=== PATIENT | male | born 1955 | race Two or more races ===

== ENCOUNTER 2025-01-14 06:14 | Inpatient (IN) | payer BC, MEDICARE ==
[2025-01-10 09:53] LABS: Urine Protein, UAD Negative (Negative)
[2025-01-10 09:54] LABS: Alanine Aminotransferase 27 U/L (7-40); Albumin 4.6 g/dL (3.2-4.8); Alkaline Phosphatase 93 U/L (46-116); Anion Gap 8 (5-15); BUN/Creatinine Ratio 8.7 (10.0-20.0); Calcium 10.1 mg/dL (8.7-10.4); Carbon Dioxide 30 mmol/L (20-31); Chloride 100 mmol/L (98-107); Potassium 4.6 mmol/L (3.5-5.1); Sodium 138 mmol/L (136-145); Total Protein 7.6 g/dL (5.7-8.2)
[2025-01-10 09:55] LABS: Hematocrit 44.5 % (41.0-53.0); Hemoglobin 15.2 g/dL (13.5-17.5); Mean Corpuscular Hemoglobin 33.2 pg (28.0-32.0); Mean Corpuscular Volume 97.1 fL (80.0-100.0); Nucleated Red Blood Cells % 0.1 %
[2025-01-10 09:57] LABS: Bilirubin, Total 2.1 mg/dL (0.2-1.0); Blood Urea Nitrogen 8 mg/dL (9-23); Glucose 149 mg/dL (74-106)
[2025-01-10 10:04] LABS: INR 1.0 (0.9-1.15); Partial Thromboplastin Time 26.5 SEC (24.5-34.5); Prothrombin Time 10.6 sec (9.3-11.8)
[2025-01-14] VITALS (19 sets, daily range): BP systolic 94–147; BP diastolic 53–95; PULSE 59–109; RESP 12–19; TEMP 96.9–98.4; O2SAT 83–99
[~2025-01-14] VITALS: Ht 182.9 cm; Wt 108.3 kg
[~2025-01-14 06:14] MED LIST: ASPI81CH59 PO; ATOR80TA PO; LISI20TA56 PO; METF-371 PO; NITR0.4S29 SL; TICA90TA PO
[2025-01-14] MEDS ORDERED: MIDAZOLAM HCL 2MG/2ML 2ml VIAL (1mg/ml) ONE (06:59)
[2025-01-14] MEDS ORDERED: fentaNYL CITRATE 100 MCG/2 ML VL ONE (06:59)
[2025-01-14] MEDS ORDERED: KETAMINE 50mg/ML 1ml syringe ONE (06:59)
[2025-01-14] MEDS ORDERED: PROPOFOL 10 MG/ML 20 ML IV ONE (07:00)
[2025-01-14] MEDS ORDERED: GLYCOPYRROLATE 0.2 MG/ML 1ML VIAL ONE (07:00)
[2025-01-14] MEDS ORDERED: ONDANSETRON HCL 4 MG/2 ML VIAL ONE (07:00)
[2025-01-14] MEDS ORDERED: MORPHINE SULF PF 5 MG/10 ML VIAL ONE (07:00)
[2025-01-14] MEDS ORDERED: PHENYLEPHRINE HCL 10 MG/ML VL ONE (07:00)
[2025-01-14] MEDS ORDERED: BUPIVACAINE/DEXTROSE MPF 0.75% 2 ML AMP IT ONE (07:00)
[2025-01-14] MEDS ORDERED: KETOROLAC TROMETH 30 MG/ML 1ML VIAL ONE (07:00)
[2025-01-14] MEDS: PREGABALIN CAPSULE 75 MG CAP PO ONE (07:19)
[2025-01-14] MEDS: CELECOXIB 100 MG CAP PO ONE (07:19)
[2025-01-14] MEDS: ACETAMINOPHEN IV 1000 MG/100ML (10MG/ML) IV ONE (07:19)
[2025-01-14] MEDS ORDERED: HYDROmorphone HCL 2 MG/ML VL/or syr IV PRN ×2 (07:30→11:45)
[2025-01-14] MEDS ORDERED: NITROGLYCERIN 0.4 MG SL TAB SL SCH (07:30)
[2025-01-14] MEDS ORDERED: NITROGLYCERIN 0.4 MG SL TAB SL PRN (07:30)
[2025-01-14] MEDS ORDERED: ONDANSETRON HCL 4 MG/2 ML VIAL IV PRN ×2 (07:30→10:00)
[2025-01-14] MEDS ORDERED: MORPHINE SULFATE INJ 2 MG/ml SYRG IV PRN (07:30)
[2025-01-14] MEDS ORDERED: DEXTROSE (50%) 50ML SYRG IV PRN (07:45)
[2025-01-14] MEDS: ceFAZolin 2 GM/D5W50ml 50 ML IV ONE (07:56)
[2025-01-14] MEDS: CEFEPIME 1GM/50ML 50 ML IV ONE (07:56)
[2025-01-14] MEDS: TRANEXAMIC ACID 20 ML ONE (07:57)
[2025-01-14] MEDS: VANCOMYCIN HCL 1000 MG VL ONE (08:26)
--- NOTE | 2025-01-14 09:34 | DVHOP2 ---
Discharge Orders Discharge Orders DISCHARGE WHEN CRITERIA MET DISCHARGE WHEN CRITERIA MET. Operative Rep- Outpatient Operative Report PRE-OP DIAGNOSIS: Left knee osteoarthritis Left knee flexion contracture PRE-OP PAIN LEVEL (0-10): 8 POST-OP DIAGNOSIS: Same [place] protocol followed: Yes ESTIMATED BLOOD LOSS: 25 cc PROCEDURE: Left total knee arthroplasty Computer navigation left total knee arthroplasty Application of negative pressure wound VAC SURGEON/HELICOPTER PILOT: Malena España MD. Darrius HARRELL ANESTHESIA: Spinal ANESTHESIOLOGIST: Von INFORMED CONSENT: Informed Consent: Discussed all inherent risks, complications, and alternatives treatments with the patient. Patient has agreed to proceed with the procedure. I have reviewed all pre-operative assessments including Labs, EKGs, and radiographic images that has been performed. Patient is an appropriate candidate for the outpatient surgical center procedure. The patient is a 69-year-old male who has ongoing pain of the left knee has pain with any kind of range of motion and function of the left knee. The patient has a flexion contracture as well. The patient was educated on the risks and benefits of surgical and nonsurgical treatment of the left lower extremity understands the risks associated with the total knee arthroplasty based on these parameters the patient is educated on the risks and benefits of surgical and nonsurgical treatment The patient is seen in the preoperative holding of the left lower extremity was marked the patient was brought to operative suite general anesthesia was then induced and also to hospital protocol the left lower extremity was prepped and draped in the standard fashion Ancef was given for infection prophylaxis TXA was given for bleeding prophylaxis once it was then done incision was made through skin subcu tissue down to the VMO quad junction of the medial parapatellar arthrotomy was then created once I was then created in the appropriate manner the patient has significant osteophytes noted in the gutter a medial parapatellar arthrotomy was then created of the fat pad was then carefully removed of the anterior aspect of the patellar tendon of the anterior horn of the medial and lateral meniscus were then carefully transected once I was then completed in the appropriate manner attention and through into computer navigation with a 2 degree slope based on the fact that we are doing an MC poly and re-doing a sacrificing the PCL knee based on the MC poly I closed down the flexion gap through the slope once I was then done using computer navigation with flexion extension internal external rotation a 2 degree slope was then measured and then neutral kinematic mechanical access was then appropriately performed the proximal tibia cut was then completed with 2 mm off the medial side. Once it was then done the distal femoral cut was then completed with a 3 degree flexion slope and a neutral kit hematocrit mechanical axis once I was then done on the sizing block was then used a size 8 femoral component was then done the 541 cutting block was then done the patient had significant posterior osteophytes noted of the medial and lateral meniscus were carefully removed along the anterior horn of the medial and lateral meniscus along with the ACL PCL once I was then done a 9 mm spacer block was then balanced in flexion and extension once it was then done. A size 7 tibial base plate was punched and kicked along the medial 1/3 tibial tubercle were then MC tendon 9 mm MC poly followed by a size 8 femoral component was punched and killed in the patellar neurectomy and all patellar osteophytes were carefully removed the patella had appropriate tracking once I was then done the patient had full range of motion of the knee. The patient was educated on the risks and benefits of surgical and nonsurgical treatment. The patient understood the risks and benefits of surgical and nonsurgical treatment of the knee was irrigated copiously with saline a size 7 tibial base plate was placed into position a 9 MC poly followed by an 8 femoral component once it was then done in the appropriate manner the knee was irrigated customized saline and then 5. Ethibond was used to close the arthrotomy followed by 0 Vicryl followed by Stratafix followed by 0 Vicryl followed by 2-0 Monocryl followed by joel. The patient will be weight- bearing as tolerated on the left lower extremity PT OT out of bed daily applicat ion of negative pressure wound VAC. the posterior osteophytes were carefully removed with a large Sibley and a release of the posterior capsule with the help with the flexion contracture to get full extension that was noted intraoperatively. KEELEY ESPAÑA MD Jan 14, 2025 09:34
[2025-01-14] MEDS: ACCU-CHEK COMFORT CURVE STRIP VI ONE (10:00)
[2025-01-14] MEDS ORDERED: NALOXONE HCL 0.4 MG/ML VIAL IV PRN (10:00)
[2025-01-14] MEDS ORDERED: diphenhydrAMINE HCL 50 MG/1 ML VL IV PRN (10:00)
--- NOTE | 2025-01-14 11:09 | DVH ---
CLINICAL INDICATION: S/P SURGERY TECHNIQUE: 3 radiographic views of the left knee were obtained. Comparison: None FINDINGS/IMPRESSION: Postop changes of the left knee arthroplasty. Distal femoral and proximal tibial prostheses in satisfactory alignment. Gas collection in the soft tissues of the mid and distal lateral femur most likely postoperative in etiology. Skin closure joel noted anteriorly.
[2025-01-14] MEDS: LACTATED RINGER'S 1,000 ML IV SCH (11:20)
[2025-01-14] MEDS: ACETAMINOPHEN IV 100 ML IV ONE (11:20)
[2025-01-14] MEDS: ceFAZolin 1GM/50ML 50 ML IV SCH (11:21)
[2025-01-14] MEDS: ACCU-CHEK COMFORT CURVE STRIP VI SCH (11:22)
[2025-01-14] MEDS: LISINOPRIL 20 MG TAB PO SCH (11:22)
--- NOTE | 2025-01-14 11:36 | DVHINCON2 ---
Date Seen: Jan 14, [address] SHERMAN Allergies: Coded Allergies: NO KNOWN ALLERGIES (Unverified , 01/14/25) Home Meds Reported Medications Nitroglycerin (NTROSTAT SUBLINGUAL) 0.4 Mg Sl, 0.4 MG SL PRN, TAB *MAY REPEAT EVERY 5 MINUTES X 3 TOTAL IF NO RELIEF, INITIATE ANALGESIC THERAPY. NOTIFY PHYSICIAN *Do not crush. 01/11/25 Metformin Hydrochloride (Metformin Hcl) 850 Mg Tab, 850 MG PO BID, TAB 01/11/25 Lisinopril (Lisinopril) 20 Mg Tab, 10 MG PO DAILY, TAB 01/11/25 Atorvastatin Calcium (Lipitor) 80 Mg Tab, 80 MG PO DAILY, TAB 01/11/25 Aspirin (Aspirin Low Dose) 81 Mg Chw, 81 MG PO, TAB.CHEW 01/11/25 Ticagrelor Base (BRILINTA) 90 Mg Tab, 90 MG PO DAILY, TAB 01/11/25 Current Medications Current Medications Medications (Trade) Dose Ordered Sig/Hilda Route PRN Reason Start Time Stop Time Status Last Admin Lisinopril (Zestril Tablet) 10 mg DAILY PO 01/14/25 10:00 Nitroglycerin (Ntrostat Sublingual) 0.4 mg PRN SL 01/14/25 07:30 UNV Ticagrelor (Brilinta) 90 mg DAILY PO 01/14/25 10:00 Atorvastatin Calcium (Lipitor) 80 mg HS PO 01/14/25 22:00 Future Hold Lactated Ringer's 1,000 ml @ 100 mls/hr Q10H IV 01/14/25 07:30 Sodium Chloride (Saline Lock Ns) 10 ml Q8HR IV 01/14/25 14:00 Cefazolin Sodium 50 ml @ 50 mls/hr Q6H IV 01/14/25 07:30 01/14/25 20:29 Acetaminophen/ Hydrocodone Bitart (Moody 5/325MG Tab) 1 tab Q4HP PRN PO MODERATE PAIN (4-6 PAIN SCALE) 01/14/25 07:30 Hydromorphone HCl (Dilaudid Injection) 1 mg Q2HP PRN IV SEVERE PAIN (7-10 PAIN SCALE) 01/14/25 07:30 Oxycodone HCl (OxyCONTIN ER Tablet) 10 mg Q12HR PO 01/14/25 10:00 Ondansetron HCl (Zofran) 4 mg Q6HP PRN IV NAUSEA / VOMITING 01/14/25 07:30 Docusate Sodium (Colace Capsule) 100 mg Q12HR PO 01/14/25 10:00 Nitroglycerin (Ntrostat Sublingual) 0.4 mg Q5MINP PRN SL FOR CHEST PAIN 01/14/25 07:30 Morphine Sulfate 2 mg Q30M PRN IV FOR CHEST PAIN 01/14/25 07:30 Diagnostic Test (Pha) (Accu-Chek Comfort Curve T) 1 strip ACHS 01/14/25 11:30 01/14/25 11:22 Insulin Human Regular (InsuLIN R) HS SC 01/14/25 22:00 Insulin Human Regular (InsuLIN R) AC SC 01/14/25 11:30 Dextrose 50 ml UD PRN IV Blood Sugar LESS THAN 60 01/14/25 07:45 Ondansetron HCl (Zofran) 4 mg ONCE PRN IV NAUSEA / VOMITING 01/14/25 10:00 01/14/25 10:01 UNV Diphenhydramine HCl (Benadryl Injection) 25 mg Q4HP PRN IV FOR ITCHING 01/14/25 10:00 Ondansetron HCl (Zofran) 4 mg Q4HP PRN IV NAUSEA / VOMITING 01/14/25 10:00 UNV Naloxone HCl (Narcan) 0.2 mg Q5M PRN IV For respirations < than 10/min 01/14/25 10:00 01/14/25 10:55 DC Dexamethasone Sodium Phosphate (Decadron Injection) 10 mg RECORDIST PRN IV FOR ITCHING 01/14/25 10:00 01/14/25 10:55 DC Ketorolac Tromethamine (Toradol Injection) 30 mg Q6HP PRN IV MODERATE PAIN (4-6 PAIN SCALE) 01/14/25 10:00 01/19/25 09:59 UNV Vital Signs Vital Signs Date Time Temp Pulse Resp B/P (MAP) Pulse Ox O2 Delivery O2 Flow Rate FiO2 01/14/25 11:13 69 15 95 Room Air* 0 21 01/14/25 10:37 128/66 (86) 01/14/25 09:52 97.7 97.7 Labs/Diagnostic Data Labs Test 01/14/25 10:04 01/10/25 09:10 Range/Units POC Glucose 140 H 70-106 mg/dl White Blood Count 5.7 4.4-10.8 10^3/uL Red Blood Count 4.58 4.5-5.90 10^6/uL Hemoglobin 15.2 13.5-17.5 g/dL Hematocrit 44.5 41.0-53.0 % Mean Corpuscular Volume 97.1 80.0-100.0 fL Mean Corpuscular Hemoglobin 33.2 H 28.0-32.0 pg Mean Corpuscular Hemoglobin Concent 34.2 32.0-36.0 g/dL Red Cell Distribution Width 14.0 11.8-14.3 % Platelet Count 247 140-450 10^3/uL Mean Platelet Volume 7.5 6.9-10.8 fL Neutrophils (%) (Auto) 39.7 37.0-80.0 % Lymphocytes (%) (Auto) 42.0 10.0-50.0 % Monocytes (%) (Auto) 10.0 0.0-12.0 % Eosinophils (%) (Auto) 7.2 H 0.0-7.0 % Basophils (%) (Auto) 1.1 0.0-2.0 % Neutrophils # (Auto) 2.3 1.6-8.6 10 ^3/uL Lymphocytes # (Auto) 2.4 0.4-5.4 10 ^3/uL Monocytes # (Auto) 0.6 0-1.3 10 ^3/uL Eosinophils # (Auto) 0.4 0-0.8 10 ^3/uL Basophils # (Auto) 0.1 0-0.2 10 ^3/uL Nucleated Red Blood Cells 0.1 % Prothrombin Time 10.6 9.3-11.8 sec Prothrombin Time INR 1.00 0.9-1.15 Activated Partial Thromboplast Time 26.5 24.5-34.5 SEC Urine Color Yellow Yellow Urine Clarity Clear Clear Urine pH 7.5 5.0-9.0 Urine Specific [place] 1.017 1.001-1.035 Urine Protein Negative Negative Urine Ketones Negative Negative Urine Blood Negative Negative /uL Urine Nitrite Negative Negative Urine Bilirubin Negative Negative Urine Urobilinogen 2 H Negative mg/dL Urine Leukocyte Esterase Negative Negative /uL Urine RBC <1 0 - 3 /hpf Urine Microscopic WBC < 1 0-3 /HPF Urine Squamous Epithelial Cells None seen <5 /hpf Urine Bacteria None seen None Seen /hpf Urine Glucose Trace Normal mg/dL Sodium Level 138 136-145 mmol/L Potassium Level 4.6 3.5-5.1 mmol/L Chloride Level 100 98-107 mmol/L Carbon Dioxide Level 30 20-31 mmol/L Anion Gap 8 5-15 Blood Urea Nitrogen 8 L 9-23 mg/dL Creatinine 0.92 0.700-1.30 mg/dL Glomerular Filtration Rate Calc 89 >90 mL/min BUN/Creatinine Ratio 8.7 L 10.0-20.0 Serum Glucose 149 H 74-106 mg/dL Calcium Level 10.1 8.7-10.4 mg/dL Total Bilirubin 2.1 H 0.2-1.0 mg/dL Aspartate Amino Transferase (AST) 24 13-40 U/L Alanine Aminotransferase (ALT) 27 7-40 U/L Alkaline Phosphatase 93 46-116 U/L Total Protein 7.6 5.7-8.2 g/dL Albumin 4.6 3.2-4.8 g/dL Assessment SEE DICTATED NOTE Plan discussed with: Patient Date of Service: Jan 14, 2025 Billing Provider: ALONA PARKER MD Common Visit Codes: [id number] INP/OBS CARE (HIGH) Secondary Visit Codes: [id number] CARE PLAN 30 MINUTES ALONA PARKER MD Jan 14, 2025 11:36
[2025-01-14] MEDS: DOCUSATE SOD 100 MG CAP PO SCH (11:48)
[2025-01-14] MEDS: TICAGRELOR 90 MG TAB PO SCH (11:48)
--- NOTE | 2025-01-14 12:08 | DVHINCON2 ---
DATE OF CONSULTATION: 01/14/2025 INTERNAL MEDICINE CONSULT HISTORY OF PRESENT ILLNESS: The patient is a 69-year-old gentleman who was admitted after he underwent surgery on the left knee for DJD of the knee. The patient at this time denies any significant pain. No chest pain, no shortness of breath, no nausea or vomiting. REVIEW OF SYSTEMS: Review of rest of the systems otherwise currently negative. PAST MEDICAL HISTORY: Significant for hypertension, diabetes, hyperlipidemia and coronary artery disease with previous stents. MEDICATIONS: He takes aspirin, Lipitor, lisinopril, metformin and Brilinta. ALLERGIES: No known drug allergies. SOCIAL HISTORY: Denies smoking. Lives at home with his son and [id number]. FAMILY HISTORY: Negative. PHYSICAL EXAMINATION: GENERAL: On exam, the patient is awake and alert. VITAL SIGNS: Temperature 98.1, pulse 93 per minute, blood pressure 140/67. SHEENT: Unremarkable. NECK: There is no JVD. No pedal edema. LUNGS: Equal bilaterally. No added sounds. CARDIOVASCULAR: S1 and S2 is regular. No murmurs. ABDOMEN: Soft. There is no organomegaly. NEUROLOGIC: Nonfocal. MUSCULOSKELETAL: There is a dressing at the site of left knee surgery. ASSESSMENT AND PLAN: * Diabetes mellitus for which he will be placed on sliding scale insulin. * Hypertension. He will continue on lisinopril. * Coronary artery disease status post stents for which he will continue on Brilinta. * Hyperlipidemia. * Obesity. * Status post left knee surgery for DJD of the knee for which he will receive pain medication and physical therapy. ADVANCED CARE PLANNING: The patient is a full code-Time spent was 17 minutes. MD AMINTA Avila/JIA TID: [id number] RECEIPT: [id number] [facility]
[2025-01-14] MEDS: InsuLIN REG 1unit/0.01ml Soln (100units/ml) SC SCH ×2 (12:21→21:58)
[2025-01-14] MEDS ORDERED: ATOR40TA52 PO (12:21)
[2025-01-14] MEDS ORDERED: LISI10TA34 PO (12:21)
[2025-01-14] MEDS: SODIUM CHLOR 0.9% PF (SALINE LOCK) 10ML VIAL/SYR IV SCH (13:13)
[2025-01-14] MEDS: KETOROLAC TROMETH 30 MG/ML 1ML VIAL IV PRN (15:42)
[2025-01-14] MEDS ORDERED: ATORVASTATIN 20 MG TAB PO SCH (22:00)
[2025-01-14] MEDS: CALCIUM CARB 500 MG CHEW TAB PO ONE (23:05)
[2025-01-15] VITALS (26 sets, daily range): BP systolic 113–170; BP diastolic 60–98; PULSE 72–110; RESP 16–19; TEMP 97.5–99.8; O2SAT 91–100
[2025-01-15] MEDS: ceFAZolin 1GM/50ML 50 ML IV SCH (02:16)
--- NOTE | 2025-01-15 06:11 | DVH ---
MEDICAL RECORDS NUMBER: [id number] PROCEDURE: XY CHEST PORTABLE DATE: 01/15/2025 05:37 AM HISTORY: cad Views:1 COMPARISON: XR CHEST 2 VIEW on DOS: 11/29/24, XR CHEST 1 VIEW on DOS: 06/17/23 FINDINGS/IMPRESSION: Lungs: The lungs are clear. Mediastinum: Mediastinal structures appear unremarkable... Skeletal: The skeletal structures appear unremarkable.
[2025-01-15 07:30] LABS: Mean Corpuscular Hemoglobin 34.1 pg (28.0-32.0); Nucleated Red Blood Cells % 0.1 %
[2025-01-15 07:32] LABS: Hematocrit 32.8 % (41.0-53.0); Hemoglobin 11.4 g/dL (13.5-17.5); Mean Corpuscular Volume 97.8 fL (80.0-100.0)
[2025-01-15 08:01] LABS: Alanine Aminotransferase 17 U/L (7-40); Alkaline Phosphatase 76 U/L (46-116); Anion Gap 7 (5-15); BUN/Creatinine Ratio 17.5 (10.0-20.0); Blood Urea Nitrogen 18 mg/dL (9-23); Calcium 8.9 mg/dL (8.7-10.4); Carbon Dioxide 30 mmol/L (20-31); Chloride 98 mmol/L (98-107); Potassium 4.7 mmol/L (3.5-5.1); Total Protein 5.9 g/dL (5.7-8.2)
[2025-01-15 08:02] LABS: Albumin 3.5 g/dL (3.2-4.8); Glucose 187 mg/dL (74-106); Sodium 135 mmol/L (136-145)
[2025-01-15 08:03] LABS: Bilirubin, Total 1.4 mg/dL (0.2-1.0)
[2025-01-15] MEDS: LACTATED RINGER'S 1,000 ML IV SCH (11:00)
--- NOTE | 2025-01-15 11:04 | DVHPN2 ---
Progress Note Date Seen: Jan 15, 2025 Medical Necessity Reason Pt with a Central, PICC or Fol: Yes The following are medically ne: Catherine Catheter Reason for catherine catheter: Bladder Retention/Obstruc Subjective Patient reports: No new complaints Review of Systems: HEENT:Normal, CVS:Normal, RESPIRATORY:Normal, GI:Normal, :Normal, MSK:Normal, NEURO:Normal Objective vital signs Vital Sign Date Time Temp Pulse Resp B/P (MAP) Pulse Ox O2 Delivery O2 Flow Rate FiO2 01/15/25 09:30 98.8 88 16 120/66 (84) 95 98.8 01/14/25 20:00 Room Air* 0 21 Total Intake and Output 01/14/25 01/14/25 01/15/25 15:00 23:00 07:00 Intake Total 120 ml 410 ml 770 ml Output Total 450 ml Balance 120 ml 410 ml 320 ml medications Current Medications Medications Dose Ordered Sig/Hilda Route Start Time Stop Time Status Last Admin Dose Admin Lisinopril 10 mg DAILY PO 01/14/25 10:00 01/15/25 09:25 10 MG Nitroglycerin 0.4 mg PRN SL 01/14/25 07:30 UNV Ticagrelor 90 mg DAILY PO 01/14/25 10:00 01/15/25 09:26 90 MG Atorvastatin Calcium 80 mg HS PO 01/14/25 22:00 Hold Lactated Ringer's 1,000 ml @ 100 mls/hr Q10H IV 01/14/25 07:30 01/15/25 01:21 100 MLS/HR Sodium Chloride 10 ml Q8HR IV 01/14/25 14:00 01/15/25 06:12 10 ML Acetaminophen/ Hydrocodone Bitart 1 tab Q4HP PRN PO 01/14/25 07:30 Oxycodone HCl 10 mg Q12HR PO 01/14/25 10:00 01/15/25 09:26 10 MG Docusate Sodium 100 mg Q12HR PO 01/14/25 10:00 01/15/25 09:25 100 MG Nitroglycerin 0.4 mg Q5MINP PRN SL 01/14/25 07:30 Morphine Sulfate 2 mg Q30M PRN IV 01/14/25 07:30 Diagnostic Test (Pha) 1 strip ACHS 01/14/25 11:30 01/15/25 06:18 1 STRIP Insulin Human Regular HS SC 01/14/25 22:00 01/14/25 21:58 3 UNITS Insulin Human Regular AC SC 01/14/25 11:30 01/15/25 06:20 3 UNITS Dextrose 50 ml UD PRN IV 01/14/25 07:45 Diphenhydramine HCl 25 mg Q4HP PRN IV 01/14/25 10:00 Ondansetron HCl 4 mg Q4HP PRN IV 01/14/25 10:00 Ketorolac Tromethamine 30 mg Q6HP PRN IV 01/14/25 10:00 01/19/25 09:59 01/15/25 09:26 30 MG Hydromorphone HCl 1 mg Q3HP PRN IV 01/14/25 11:45 Examination: GENERAL:Normal, HEENT:Normal, NECK:Normal, LUNGS:Normal, CVS:Normal, ABDOMEN:Normal, MSK:Normal, MSK:Abnormal (LEFT KNEE DRESSING), SKIN:Normal, NEURO:Normal, :Normal laboratory and microbiology Laboratory Tests 01/15/25 05:20 Test 01/15/25 05:20 Range/Units Serum Glucose 187 H 74-106 mg/dL Problem List/Assessment/Plan Problem List/Assessment/Plan * Diabetes mellitus for which he will be placed on sliding scale insulin. * Hypertension. He will continue on lisinopril. * Coronary artery disease status post stents for which he will continue on Brilinta. * Hyperlipidemia. * Obesity. * Urinary retention: catherine, renal usg * Status post left knee surgery for DJD of the knee for which he will receive pain medication and physical therapy. advance care planning- full code- time spent 18 mins Plan discussed with: Patient My Orders My Orders Orders - ALONA PARKER MD Procedure Category Date Status Time Hydromorphone PHA 01/14/25 In Process Injection (Dilaudid 11:45 Chest Portable XY 01/15/25 Resulted 06:00 Insert/Manage Urinary SHREYAS 01/14/25 In Process Catheter 17:59 Pt Request For Service PT 01/14/25 Logged 18:53 Lactated Ringers 1000 PHA 01/15/25 Verified mL 11:00 Ketorolac Injection PHA 01/15/25 Verified (Toradol Injection) 11:00 Tamsulosin PHA 01/15/25 Verified Hydrochloride (Flomax) 11:00 Tamsulosin PHA 01/15/25 Verified Hydrochloride (Flomax) 18:00 Kidney US 01/15/25 Verified 10:57 Basic Metabolic Panel LAB 01/16/25 Verified 06:00 Date of Service: Jan 15, 2025 Billing Provider: ALONA PARKER MD Common Visit Codes: [id number] INP/OBS CARE(HIGH) Secondary Visit Codes: [id number] CARE PLAN 30 MINUTES ALONA PARKER MD Jan 15, 2025 11:04
[2025-01-15] MEDS: TAMSULOSIN HYDROCHLORIDE 0.4 MG CAP PO ONE (11:50)
--- NOTE | 2025-01-15 12:07 | DVH ---
CLINICAL HISTORY: URINARY RETENTION TECHNIQUE: Complete ultrasound exam of the kidneys and bladder was performed. COMPARISON: None FINDINGS: The right kidney has normal echogenicity and measures 12 cm. There is no focal parenchymal abnormality or evidence for stone. There is no hydronephrosis. The left kidney has normal echogenicity and measures 11.8 cm. There is no focal parenchymal abnormality or evidence for stone. There is no hydronephrosis. The bladder is decompressed by a Pratt catheter. IMPRESSION: NO SIGNIFICANT SONOGRAPHIC ABNORMALITY OF THE KIDNEYS.
[2025-01-15] MEDS ORDERED: CALCIUM CARB 500 MG CHEW TAB PO PRN (15:30)
[2025-01-15] MEDS: DOCUSATE SOD 100 MG CAP PO PRN (18:47)
[2025-01-15] MEDS: KETOROLAC TROMETH 30 MG/ML 1ML VIAL IV PRN (18:47)
[2025-01-15] MEDS: TAMSULOSIN HYDROCHLORIDE 0.4 MG CAP PO SCH (18:47)
[2025-01-16] VITALS (10 sets, daily range): BP systolic 121–158; BP diastolic 53–89; PULSE 88–120; RESP 16–19; TEMP 97.8–99.8; O2SAT 90–97
[2025-01-16] MEDS: HYDROcodone-ACET 5/325MG TAB PO PRN (03:37)
[2025-01-16 06:11] LABS: Hematocrit 29.1 % (41.0-53.0); Hemoglobin 10.4 g/dL (13.5-17.5)
[2025-01-16 06:18] LABS: Anion Gap 8 (5-15); Carbon Dioxide 27 mmol/L (20-31); Potassium 4.4 mmol/L (3.5-5.1)
[2025-01-16 06:19] LABS: Calcium 8.9 mg/dL (8.7-10.4)
[2025-01-16 06:22] LABS: Chloride 97 mmol/L (98-107); Sodium 132 mmol/L (136-145)
[2025-01-16 06:24] LABS: BUN/Creatinine Ratio 14.1 (10.0-20.0); Blood Urea Nitrogen 12 mg/dL (9-23)
[2025-01-16 06:25] LABS: Glucose 166 mg/dL (74-106)
--- NOTE | 2025-01-16 08:06 | DVHPN2 ---
Progress Note Date Seen: Jan 16, 2025 Medical Necessity Reason Pt with a Central, PICC or Fol: No Subjective Patient reports: No new complaints Objective vital signs Vital Sign Date Time Temp Pulse Resp B/P (MAP) Pulse Ox O2 Delivery O2 Flow Rate FiO2 01/16/25 06:22 96 143/72 (95) 01/16/25 05:00 97.8 18 95 97.8 01/15/25 20:00 Nasal Cannula* 2 28 Total Intake and Output 01/15/25 01/15/25 01/16/25 15:00 23:00 07:00 Intake Total 1150 ml 600 ml Output Total 600 ml 900 ml Balance 550 ml -300 ml medications Current Medications Medications Dose Ordered Sig/Hilda Route Start Time Stop Time Status Last Admin Dose Admin Lisinopril 10 mg DAILY PO 01/14/25 10:00 01/15/25 09:25 10 MG Nitroglycerin 0.4 mg PRN SL 01/14/25 07:30 UNV Ticagrelor 90 mg DAILY PO 01/14/25 10:00 01/15/25 09:26 90 MG Atorvastatin Calcium 80 mg HS PO 01/14/25 22:00 Hold Sodium Chloride 10 ml Q8HR IV 01/14/25 14:00 01/16/25 06:16 10 ML Acetaminophen/ Hydrocodone Bitart 1 tab Q4HP PRN PO 01/14/25 07:30 01/16/25 03:37 1 TAB Oxycodone HCl 10 mg Q12HR PO 01/14/25 10:00 01/15/25 21:42 10 MG Nitroglycerin 0.4 mg Q5MINP PRN SL 01/14/25 07:30 Morphine Sulfate 2 mg Q30M PRN IV 01/14/25 07:30 Diagnostic Test (Pha) 1 strip ACHS 01/14/25 11:30 01/16/25 06:16 1 STRIP Insulin Human Regular HS SC 01/14/25 22:00 01/15/25 21:47 3 UNITS Insulin Human Regular AC SC 01/14/25 11:30 01/16/25 06:15 3 UNITS Dextrose 50 ml UD PRN IV 01/14/25 07:45 Diphenhydramine HCl 25 mg Q4HP PRN IV 01/14/25 10:00 Ondansetron HCl 4 mg Q4HP PRN IV 01/14/25 10:00 Hydromorphone HCl 1 mg Q3HP PRN IV 01/14/25 11:45 Lactated Ringer's 1,000 ml @ 75 mls/hr [id number] IV 01/15/25 11:00 01/15/25 13:00 75 MLS/HR Ketorolac Tromethamine 15 mg Q6HP PRN IV 01/15/25 11:00 01/19/25 09:59 01/15/25 18:47 15 MG Tamsulosin HCl 0.4 mg QPM PO 01/15/25 18:00 01/15/25 18:47 0.4 MG Calcium Carbonate 500 mg QIDPRN PRN PO 01/15/25 15:30 Docusate Sodium 200 mg DAILYPRN PRN PO 01/15/25 16:00 01/15/25 18:47 200 MG Examination: GENERAL:Normal, MSK:Abnormal laboratory and microbiology Laboratory Tests 01/16/25 05:40 01/15/25 05:20 Test 01/16/25 05:40 Range/Units Serum Glucose 166 H 74-106 mg/dL Problem List/Assessment/Plan Problem List/Assessment/Plan 69 year old male who is s/p left TKA POD 2 1. pain control 2. DVT ppx 3. CPM as ordered 4. Physical therapy 5. follow up on 01/30/2025 at 10:45 as scheduled 6. prescriptions for percocet, aspirin, colace and keflex on 01/08/[address]25 [facility] on [address] 7. patient is clear for discharge from orthopedic standpoint with home health/P Total Knee Arthroplasty Discharge Instructions Wound Care 1. You will likely have a gel-type dressing over your wound, you may keep this on for 7-14 days after leaving the hospital until your first post-op visit, unless it becomes soiled or your skin becomes irritated. If a wound vac dressing is placed on your knee this is to be left in place for one week and will be changed as needed. After your remove the dressing or wound vac, the home health nurse may place clean dry dressing over your wound. Keep wound covered, clean and dry for two weeks. 2. Rinard will be removed during your initial post-op visit. If you have concerns about our wound, please call the office immediately. If nervous about staple removal can take pain pill one hour prior to appointment. 3. If there is drainage from your wound, change the dressing daily until it stops. If drainage lasts more than 10 days, call our office. 4. Low grade (up to 100 degrees) fever is common for the first week after surgery. You should take your temperature daily. If you have fevers of 101 or more, please call the office. Medication Management 1. You will be discharged with pain medication, a blood thinner (unless you were previously on a blood thinner prior to surgery) and stool softener. Please follow the instructions regarding these medications as provided by your nurse at the hospital upon discharge. 2. Blood clots in the leg are a known complication of surgery. It is very important that you take the medication to protect against clots. Depending on what you are discharged on typically it is Lovenox 40mg daily for 2 weeks or Aspirin 81mg twice daily for 4 weeks. After you finish this, you should then take baby Aspirin (81mg) once daily for 2 weeks. 3. You should restart all of your prescription medications once discharged from the hospital/surgery center unless specifically instructed otherwise. 4. Herbal supplements may be restarted 2 weeks after surgery. 5. If you have been given Coumadin as a blood thinner, please follow up with your quality assurance group leader during the first two weeks after surgery to review medications and overall medical well-being. 6. Please note that narcotic pain medication may cause constipation. Please remember to take stool softeners (Colace) when using narcotics to help reduce the change of constipation. You should not use alcohol together with narcotic medication. Activity 1. CPM as ordered, goal is for 6 hours every day for the first 21 days of your recovery. Can break it up in to increments of 2-3 hours at a time. Most hospitals will start at 45 degrees of flexion, and increase by 5 degrees daily until the machine has been maxed out. The goal is to be at 90 degrees by first postop visit in 2 weeks. 2. No pool, jacuzzi, beach, peraza or bath for 6 weeks. Once all scabbing has fallen off patient can begin soaking and submerging knee under water for 15- minute periods at a time. 3. Physical therapy is critical in the first 2 weeks. If having issues with scheduling please inform office. 4. No running or jumping for 6 weeks. 5. Can walk and bear as much weight on the surgical leg as tolerated. No restrictions in regards to walking or standing. [facility] [place] Instructions 1. Driving is not permitted within the first 2 weeks. 2. Your first postoperative visit will take place 2 weeks after discharge. Please call the office once you are home from the hospital to arrange this appointment. 3. Antibiotic preventative treatment is required before dental or other invasive procedures. Please ask your surgeon about this at your first postoperative visit. If you experience chest pain, shortness of breath or severe painful calf swelling, go to the nearest emergency room to be evaluated. Please call our office once your situation is stabilized. Plan discussed with: Patient Date of Service: Jan 16, 2025 Billing Provider: CHRISTINA SHERMAN MD Common Visit Codes: NOT BILLABLE EMILI BALDERAS NP Jan 16, 2025 08:06
--- NOTE | 2025-01-16 11:11 | DVHPN2 ---
Progress Note Date Seen: Jan 16, 2025 Medical Necessity Reason Pt with a Central, PICC or Fol: No Subjective Patient reports: No new complaints Review of Systems: HEENT:Normal, CVS:Normal, RESPIRATORY:Normal, GI:Normal, :Normal, MSK:Normal, NEURO:Normal Objective vital signs Vital Sign Date Time Temp Pulse Resp B/P (MAP) Pulse Ox O2 Delivery O2 Flow Rate FiO2 01/16/25 09:19 166/71 01/16/25 09:19 98.6 88 18 96 98.6 01/16/25 08:00 Nasal Cannula* 2 28 Total Intake and Output 01/15/25 01/15/25 01/16/25 15:00 23:00 07:00 Intake Total 1150 ml 600 ml Output Total 600 ml 900 ml Balance 550 ml -300 ml medications Current Medications Medications Dose Ordered Sig/Hilda Route Start Time Stop Time Status Last Admin Dose Admin Lisinopril 10 mg DAILY PO 01/14/25 10:00 01/16/25 09:19 10 MG Nitroglycerin 0.4 mg PRN SL 01/14/25 07:30 UNV Ticagrelor 90 mg DAILY PO 01/14/25 10:00 01/16/25 09:21 90 MG Atorvastatin Calcium 80 mg HS PO 01/14/25 22:00 Hold Sodium Chloride 10 ml Q8HR IV 01/14/25 14:00 01/16/25 06:16 10 ML Acetaminophen/ Hydrocodone Bitart 1 tab Q4HP PRN PO 01/14/25 07:30 01/16/25 10:28 1 TAB Oxycodone HCl 10 mg Q12HR PO 01/14/25 10:00 01/16/25 09:20 10 MG Nitroglycerin 0.4 mg Q5MINP PRN SL 01/14/25 07:30 Morphine Sulfate 2 mg Q30M PRN IV 01/14/25 07:30 Diagnostic Test (Pha) 1 strip ACHS 01/14/25 11:30 01/16/25 06:16 1 STRIP Insulin Human Regular HS SC 01/14/25 22:00 01/15/25 21:47 3 UNITS Insulin Human Regular AC SC 01/14/25 11:30 01/16/25 06:15 3 UNITS Dextrose 50 ml UD PRN IV 01/14/25 07:45 Diphenhydramine HCl 25 mg Q4HP PRN IV 01/14/25 10:00 Ondansetron HCl 4 mg Q4HP PRN IV 01/14/25 10:00 Hydromorphone HCl 1 mg Q3HP PRN IV 01/14/25 11:45 Lactated Ringer's 1,000 ml @ 75 mls/hr [id number] IV 01/15/25 11:00 01/15/25 13:00 75 MLS/HR Ketorolac Tromethamine 15 mg Q6HP PRN IV 01/15/25 11:00 01/19/25 09:59 01/15/25 18:47 15 MG Tamsulosin HCl 0.4 mg QPM PO 01/15/25 18:00 01/15/25 18:47 0.4 MG Calcium Carbonate 500 mg QIDPRN PRN PO 01/15/25 15:30 Docusate Sodium 200 mg DAILYPRN PRN PO 01/15/25 16:00 01/15/25 18:47 200 MG Examination: GENERAL:Normal, HEENT:Normal, NECK:Normal, LUNGS:Normal, CVS:Normal, ABDOMEN:Normal, MSK:Normal, MSK:Abnormal (left knee dressing), SKIN:Normal, NEURO:Normal, :Normal laboratory and microbiology Laboratory Tests 01/16/25 05:40 01/15/25 05:20 Test 01/16/25 05:40 Range/Units Serum Glucose 166 H 74-106 mg/dL Problem List/Assessment/Plan Problem List/Assessment/Plan * Diabetes mellitus for which he will be placed on sliding scale insulin. * Hypertension. He will continue on lisinopril. * Coronary artery disease status post stents for which he will continue on Brilinta. * Hyperlipidemia. * Obesity. 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 advance care planning- full code- time spent 18 mins Plan discussed with: Patient My Orders My Orders Orders - ALONA PARKER MD Procedure Category Date Status Time Calcium Carbonate PHA 01/15/25 In Process (Tums) 15:30 Docusate Sodium PHA 01/15/25 In Process Capsule (Colace 16:00 Discontinue Catherine SHREYAS 11/19/25 Verified Catheter 11:08 * Engineering Technology Instructor CONS 01/16/25 Verified Consult Polyethylene Glycol PHA 01/16/25 Verified 17g Powder (Miralax 11:15 Polyethylene Glycol PHA 01/16/25 Verified 17g Powder (Miralax 11:15 Date of Service: Jan 16, 2025 Billing Provider: ALONA PARKER MD Common Visit Codes: [id number] INP/OBS CARE(HIGH) ALONA PARKER MD Jan 16, 2025 11:11
[2025-01-16] MEDS: POLYETHYLENE GLYCOL 17 GM PWDR PO ONE (11:15)
[2025-01-16] MEDS: ONDANSETRON HCL 4 MG/2 ML VIAL IV PRN (11:22)
[2025-01-17 01:00] VITALS: BP 146/77; PULSE 96; RESP 17; TEMP 97.7; O2SAT 96
[2025-01-17 05:00] VITALS: BP 146/80; PULSE 100; RESP 18; TEMP 98.4; O2SAT 97
[2025-01-17 06:47] LABS: Hemoglobin 10.6 g/dL (13.5-17.5)
[2025-01-17 06:49] LABS: Hematocrit 30.1 % (41.0-53.0)
[2025-01-17 08:00] VITALS: PULSE 119; PULSE 86; O2SAT 94
[2025-01-17 09:00] VITALS: BP 123/61; PULSE 116; RESP 20; TEMP 99.3; O2SAT 94
[2025-01-17] MEDS ORDERED: POLYETHYLENE GLYCOL 17 GM PWDR PO PRN (10:00)
[2025-01-17 13:00] VITALS: BP 120/71; PULSE 116; RESP 18; TEMP 98.7; O2SAT 92
--- NOTE | 2025-01-17 15:35 | DVHDS2 ---
Discharge Summary Date of Admission Jan 14, 2025 at 07:20 Date of Discharge: Jan 17, 2025 Labs/Diagnostic Data: Laboratory Results Test 01/17/25 10:47 01/17/25 05:23 01/16/25 05:40 01/15/25 05:20 POC Glucose 169 mg/dl (70-106) Hemoglobin 10.6 g/dL (13.5-17.5) Hematocrit 30.1 % (41.0-53.0) Sodium Level 132 mmol/L (136-145) Potassium Level 4.4 mmol/L (3.5-5.1) Chloride Level 97 mmol/L (98-107) Carbon Dioxide Level 27 mmol/L (20-31) Anion Gap 8 (5-15) Blood Urea Nitrogen 12 mg/dL (9-23) Creatinine 0.85 mg/dL (0.700-1.30) Glomerular Filtration Rate Calc 93 mL/min (>90) BUN/Creatinine Ratio 14.1 (10.0-20.0) Serum Glucose 166 mg/dL (74-106) Calcium Level 8.9 mg/dL (8.7-10.4) White Blood Count 6.2 10^3/uL (4.4-10.8) Red Blood Count 3.35 10^6/uL (4.5-5.90) Mean Corpuscular Volume 97.8 fL (80.0-100.0) Mean Corpuscular Hemoglobin 34.1 pg (28.0-32.0) Mean Corpuscular Hemoglobin Concent 34.8 g/dL (32.0-36.0) Red Cell Distribution Width 13.8 % (11.8-14.3) Platelet Count 201 10^3/uL (140-450) Mean Platelet Volume 7.8 fL (6.9-10.8) Neutrophils (%) (Auto) 64.8 % (37.0-80.0) Lymphocytes (%) (Auto) 21.9 % (10.0-50.0) Monocytes (%) (Auto) 12.0 % (0.0-12.0) Eosinophils (%) (Auto) 0.9 % (0.0-7.0) Basophils (%) (Auto) 0.4 % (0.0-2.0) Neutrophils # (Auto) 4.0 10 ^3/uL (1.6-8.6) Lymphocytes # (Auto) 1.4 10 ^3/uL (0.4-5.4) Monocytes # (Auto) 0.7 10 ^3/uL (0-1.3) Eosinophils # (Auto) 0.1 10 ^3/uL (0-0.8) Basophils # (Auto) 0 10 ^3/uL (0-0.2) Nucleated Red Blood Cells 0.1 % Hemoglobin A1c 6.8 % A1C (<5.7) Total Bilirubin 1.4 mg/dL (0.2-1.0) Aspartate Amino Transferase (AST) 19 U/L (13-40) Alanine Aminotransferase (ALT) 17 U/L (7-40) Alkaline Phosphatase 76 U/L (46-116) Total Protein 5.9 g/dL (5.7-8.2) Albumin 3.5 g/dL (3.2-4.8) Test 01/10/25 09:10 Prothrombin Time 10.6 sec (9.3-11.8) Prothrombin Time INR 1.00 (0.9-1.15) Activated Partial Thromboplast Time 26.5 SEC (24.5-34.5) Urine Color Yellow (Yellow) Urine Clarity Clear (Clear) Urine pH 7.5 (5.0-9.0) Urine Specific [place] 1.017 (1.001-1.035) Urine Protein Negative (Negative) Urine Ketones Negative (Negative) Urine Blood Negative /uL (Negative) Urine Nitrite Negative (Negative) Urine Bilirubin Negative (Negative) Urine Urobilinogen 2 mg/dL (Negative) Urine Leukocyte Esterase Negative /uL (Negative) Urine RBC <1 /hpf (0 - 3) Urine Microscopic WBC < 1 /HPF (0-3) Urine Squamous Epithelial Cells None seen /hpf (<5) Urine Bacteria None seen /hpf (None Seen) Urine Glucose Trace mg/dL (Normal) Other Laboratory Tests 01/17/25 05:23 01/16/25 05:40 01/15/25 05:20 Brief Hx & Hospital Course: see dictated note Condition at Discharge: Fair Final Diagnosis/Problems List knee surgery Discharge Disposition: Home Discharge Instruct/Medications Diet: Cardiac 2g Na,low cholest Activity: No Restrictions, As Tolerated Follow Up/Referral: fu wiht pcp/ortho Medications: resume home meds rest meds per ortho Scheduled Atorvastatin Calcium (Atorvastatin Calcium), 1 TAB PO DAILY, (Reported) Lisinopril (Lisinopril), 1 TAB PO DAILY, (Reported) Metformin Hydrochloride (Metformin Hcl), 850 MG PO BID, (Reported) Nitroglycerin (Ntrostat Sublingual), 0.4 MG SL PRN, (Reported) Ticagrelor Base (Brilinta), 90 MG PO DAILY, (Reported) Miscellaneous Medications Aspirin (Aspirin Low Dose), 81 MG PO, (Reported) Discharge Statement: "Patient was advised to return to the ER or call 911 if any headaches, dizziness, shortness of breath, chest pain, abdominal pain, bleeding, fevers, or worsening of medical condition. Patient was counseled about treatment plan, medications, possible side effects, patientverbalized understanding. All questions were answered to the best of my ability. This discharge took greater then 30 minutes in planning, reviewing documentation, counseling the patient, and discussing with other team members." ASSESSMENT ASSESSMENT Assessment knee surgery Date of Service: Jan 17, 2025 Billing Provider: ALONA PARKER MD Common Visit Codes: [id number]-LOC/OBS DISCH DAY >30min ALONA PARKER MD Jan 17, 2025 15:35
--- NOTE | 2025-01-17 16:54 | DVHDS ---
DATE OF DISCHARGE: 01/17/2025 HISTORY OF PRESENT ILLNESS: The patient is a 69-year-old gentleman who was admitted after he underwent surgery on the left knee for DJD of the knee and has a history of diabetes, hypertension, hyperlipidemia and coronary artery disease. HOSPITAL COURSE: The patient did well postoperatively. The patient's hemoglobin at time of discharge is 10.6. He did go into urinary retention that has since resolved. A kidney ultrasound that was done showed no significant abnormality. The patient will now be discharged home to resume his home medications and follow up with Orthopedics. He will be having home physical therapy and will be on medications as per Orthopedics. FINAL DIAGNOSES: Therefore, * Hypertension. * Diabetes mellitus. * Coronary artery disease with stents. * Hyperlipidemia. * Obesity. * Urinary retention. 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 Time spent in discharge planning and review of plan with the patient and nursing was 38 minutes. MD AMINTA Avila/DEMETRI TID: [id number] RECEIPT: [id number]
== END 2025-01-17 17:10 | disposition home or self-care (01) | DRG 470 ==
LOC: SUR 06:14 → OVERFLOW 07:20 → WEST WING 10:48
PROVIDERS: ADMIT Internal Medicine; ATTEND Internal Medicine
PROC: 8E0YXBZ Computer Assisted Procedure of Lower Extremity (ICD-10-PCS; 2025-01-14)
PROC: 0SRD06Z Replacement of Left Knee Joint with Oxidized Zirconium on Polyethylene Synthetic Substitute, Open Approach (ICD-10-PCS; principal; 2025-01-14 07:55)
DX: M17.12 Unilateral primary osteoarthritis, left knee (principal); M24.562 Contracture, left knee; E11.9 Type 2 diabetes mellitus without complications; Z79.02 Long term (current) use of antithrombotics/antiplatelets; I10 Essential (primary) hypertension; E66.9 Obesity, unspecified; E78.5 Hyperlipidemia, unspecified; I25.10 Atherosclerotic heart disease of native coronary artery without angina pectoris; R33.9 Retention of urine, unspecified; Z95.5 Presence of coronary angioplasty implant and graft; Z68.32 Body mass index [BMI] 32.0-32.9, adult
CPT/HCPCS: 36415; 71045; 73562; 76775; 80048; 80053; 81001; 82962; 83036; 85014; 85018; 85025; 85610; 85730; 97110; 97116; 97163; 97530; G0378; J0131; J1815; J1885; J2250; J2405; J2704